=== PATIENT | female | born 2005 | race Caucasian/White ===

== ENCOUNTER 2025-01-25 14:48 | Outpatient (OUT) | payer BC, SELFPAY ==
--- OUTSIDE RECORDS SUMMARY | 2025-01-25 10:41 | XMS_ITS | Continuity of Care Document ---
Author Organization [facility] Address [address] [place] [address] Phone Care Team Providers Care Alumni Relations Coordinator Name Role Phone Jo-Ann Beckham MD Primary Care Provider Jo-Ann Beckham MD Attending Provider Care Teams Patient Care Team Team Status: Active Member Role Status Dates Jo-Ann Beckham MD Primary Care Provider Active Patient Care Team Team Status: Inactive Member Role Status Dates Jo-Ann Beckham MD Primary Care Provider Active Start: January 25, 2025 End: January 25, 2025 Jo-Ann Beckham MD Attending Provider Active St art: January 25, 2025 End: January 25, 2025 Chief Complaint and Reason for Visit Chief Complaint Admit Date Wellness January 25, 2025 2: 11pm Reason for Visit Admit Date Family history of hypothyroidism January 25, 2025 2:11pm Fatigue January 25, 2025 2: 11pm Wellness examination January 25, 2025 2 :11pm Allergies, Adverse Reactions, Alerts Allergen Type Severity Reaction Last Updated Verified Status No Known Allergies Allergy Unknown January 25, 2025 2:1 7pm Yes Active Social History Smoking Status Status Start Date End Date Date of Observa tion Never smoked tobacco (finding) August 11, 2023 9:55am Observation Status Observation Response Date of Response Legal Sex Female (finding) Sex Assigned At Female May 132005 Status N January 25 Family History Relationship Condition Age at Onset Recorded Date/T patrice mother Family history of thyroid disease Unknown Problems Active Problems Medical Problem Onset Date Status Acute recurrent maxillary sinusitis August 02, 2015 Active Fatigue Unknown Active Wellness examination Unknown Active Family history of hypothyroidism Unknown Active Medications Medication Status Dose Units Route Directions Qty Days St art Date Stop Date End Date Instructions Adherence Lamotrigine 100 mg tablet Active MG PO August 09, 2023 12:00a m FreeTextSig: Oral; Note: Source Status: Taking; Qty: 180 Tablet; Provider: Bhavani Busch ( ) Complies with drug therapy Azithromyci n 250 mg tablet Discont inued 0 PO .COMPLEX 6 August 11, 2023 12:00a m Octob er 2024 2:17p m For 250 mg dose pack: take 500 mg today (day 1), then 250 mg for 4 days (days 2-5) PO Immunizations Immunization Event Date Not Given Reason Dose Number 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 Lot Number Vaccine Information Statement (VIS) Detail Administration Location COVID-19 mRNA, [facility] ([facility]) May 29, 2021 COVID-19 mRNA, [employer] ([facility]) June 19, 2021 DTaP-IPV December 11, 2010 DTap/HepB/IPV 2005 DTap/HepB/IPV 2005 DTap, unspecified 2005 Hepatitis A Vaccine, adol/ped, 2 dose February 21, 2014 Hepatitis A Vaccine, adol/ped, 2 dose October 06, 2017 Hepatitis B Vaccine, adol/ped dosage 2005 Hib, PRP-T Conjugate 2005 Hib, PRP-T Conjugate 2005 Hib, PRP-T Conjugate June 09, 2006 Hib, unspecified formulation 2005 influenza, unspecified formulation February 06, 2020 Meningococcal MCV4O October 06, 2017 Meningococcal ACYW-TT September 17, 2022 Measles, Mumps, and Rubella Virus Vaccine December 11, 2010 Measles, Mumps, Rubella, and Varicella June 09, 2006 Pneumococcal Conjugate, unspecified 2005 Pneumococcal Conjugate, unspecified 2005 Pneumococcal Conjugate, unspecified 2005 polio, unspecified formulation 2005 Tetanus, Diphtheria adult, 5 Lf pres free abs October 06, 2017 Varicella Virus Vaccine December 11, 2010 Vital Signs Vital Reading Result Reference Range Collection Date/Time Height 66 [in_i] January 25 2:15pm Weight 57.32 kg January 25 2:15pm Heart Rate 89 /min 60-100 January 25 2:15pm BP Systolic 108 mm[Hg] 100-140 January 25 2:15pm BP Diastolic 68 mm[Hg] 60-100 January 25 2:15pm BMI (Body Mass Index) 20.4 kg/m2 Octobe r 2024 2:15pm Body mass index (BMI) [Percentile] Per age and sex 33.3 % Normal or healthy weight; 5th to 85th percentile January 25, 2025 2:15pm Advance Directives Advance Directive Response Recorded Date/ Time Advance Directives No August 05 2 024 1:22pm Insurance Providers Guarantor Aleyda Ken Address [address] [address] Contact Info. Home Phone: Payer Policy Id Subscriber's Name Subscriber Id Effectiv e Date Expiration Date [place] [id number] David Ken [id number] Encounters Encounter Location(s) Arrival/Admit Date Discharge/Depart Date Provider(s) Departed Physician/Prov ider Office Visit -[facility] January 25, 2025 2:11pm January 25, 2025 2:40pm Jo-Ann Beckham MD Recent Diagnosis Onset Date Admit Date Family history of hypothyroidism Unknown January 25, 2025 2:11pm Fatigue Unknown January 25 2:11pm Wellness examination Unknown January 2:11pm Assessments Diagnosis Onset Date Resolution Status Admit Date Family history of hypothyroidism acu te January 25, 2025 2:11pm Fatigue acute January 25, 2 025 2:11pm Wellness examination acute Octo 2024 2:11pm Plan of Treatment Future Tests Future scheduled test information is unavailable Pending Tests Test Name Ordered Date Scheduled Date Comprehensive Metabolic Panel January 25, 2025 2:34pm Future Visits Future appointment information is unavailable Referrals to Other Providers Referral information is unavailable Future Procedures Procedure Name Ordered Date Scheduled Date Complete Blood Count Auto Diff January 25, 2025 2:34pm Ferritin January 25, 2025 2:34pm Free T4 (Free Thyroxine) January 25, 2025 2:34p m Thyroid Stim Hormone w/Rflx January 25, 2025 2: 34pm Future Medications Future medication information is unavailable Patient Instructions Patient instructions are unavailable
[2025-01-25 15:25] LABS: Hematocrit 39.3 % (36.0-48.0); Hemoglobin 13.1 g/dL (12.0-16.0); Immature Granulocytes Abs Auto 0.01 10^3/uL (0.00-0.03); Immature Granulocytes Pct Auto 0.2 % (0.0-0.5); Lymphocytes Absolute Auto 1.9 10^3/uL (1.2-3.8); Mean Corpuscular HGB Conc 33.3 g/dL (29.9-35.2); Mean Corpuscular Hemoglobin 29.6 pg (26.7-34.0); Mean Corpuscular Volume 88.7 fL (81.0-99.0); Platelet Count 185 10^3/uL (150-450); Red Blood Count 4.43 10^6/uL (4.20-5.40); White Blood Count 6.0 10^3/uL (4.0-11.0)
[2025-01-25 16:05] LABS: Alanine Aminotransferase 30 U/L (14-59); Albumin Globulin Ratio 1.1; Albumin Level 4.1 g/dL (3.4-5.0); Alkaline Phosphatase 73 U/L (46-116); Anion Gap 12.4; Aspartate Amino Transferase 23 U/L (15-37); Blood Urea Nitrogen 11.0 mg/dL (6.4-19.3); Calcium 9.4 mg/dL (8.5-10.1); Carbon Dioxide 28.5 mmol/L (21.0-32.0); Chloride 105 mmol/L (98-107); Estimated GFR (African America >60 (>=60 mL/min/1.73m^2); Estimated GFR (Non-African Ame >60 (>=60 mL/min/1.73m^2); Globulin 3.6 g/dL; Glucose 90 mg/dL (74-106); Potassium 3.9 mmol/L (3.5-5.1); Sodium 142 mmol/L (136-145); TSH W/ REFLEX FT4 1.001 uIU/mL (0.516-4.130); Total Protein 7.7 g/dL (6.4-8.2)
[2025-01-25 16:48] LABS: Ferritin 24.0 ng/mL (8.0-252.0)
== END 2025-01-25 14:49 | disposition home or self-care (01) ==
LOC: LAB 14:51
PROVIDERS: PCP Family Medicine; Visit Provider Family Medicine
DX: Z00.00 Encounter for general adult medical examination without abnormal findings (principal); R53.83 Other fatigue; Z83.49 Family history of other endocrine, nutritional and metabolic diseases
CPT/HCPCS: 36415; 80053; 82728; 84439; 84443; 85025